=== PATIENT | female | born 1985 | race Caucasian/White ===

== ENCOUNTER 2017-06-05 18:26 | Emergency (ER) | payer OTHER ==
[~2017-06-05] VITALS: Ht 162.6 cm; Wt 71.7 kg
[2017-06-05 18:47] VITALS: BP 117/72
[2017-06-05] MEDS ORDERED: NACL 0.9% 1,000 ML IV ONE (20:50)
[2017-06-05] MEDS ORDERED: diphenhydrAMINE 50 MG/ML VIAL IVP ONE (20:50)
[2017-06-05] MEDS ORDERED: METOCLOPRAMIDE 10 MG/2 ML INJ VIAL IVP ONE (20:50)
[2017-06-05] MEDS ORDERED: KETOROLAC 30 MG/ML VIAL IVP ONE (21:35)
[2017-06-05 22:16] VITALS: BP 118/74
== END 2017-06-05 22:16 | disposition home or self-care (01) ==
LOC: MED 18:26
DX: R51 Headache (principal); H53.8 Other visual disturbances; R11.2 Nausea with vomiting, unspecified
CPT/HCPCS: 70450; 81002; 81025; 96361; 96374; 96375; 99284; J1200; J1885; J2765; J7030

== ENCOUNTER 2020-05-14 23:14 | Emergency (ER) | payer OTHER ==
[~2020-05-14] VITALS: Ht 165.1 cm; Wt 73.5 kg
[2020-05-14 23:23] VITALS: BP 121/76
--- NOTE | 2020-05-14 23:31 | NUR ---
ambulated to bed 06 with steady gait
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
--- NOTE | 2020-05-14 23:40 | NUR ---
DR. MENESES AT BEDSIDE FOR MEDICAL EVALUATION.
[2020-05-14] MEDS ORDERED: ONDANSETRON 4 MG TAB ONE (23:42)
[2020-05-14] MEDS ORDERED: ONDANSETRON 4 MG ODT PO ONE (23:45)
--- NOTE | 2020-05-15 00:09 | NUR ---
US AT BEDSIDE .
--- NOTE | 2020-05-15 00:32 | NUR ---
PT RESTING IN BED , LOCKED AND IN LOWEST POSITION, HOB ELEVATED, SIDE RAIL X2 FOR PT SAFETY. PT STATES SHE NO LONGER HAS NAUSEA AT THIS TIME .
--- NOTE | 2020-05-15 01:29 | NUR ---
pt ambulated to restroom w/ steady gait.
--- NOTE | 2020-05-15 02:14 | NUR ---
DR. MENESES AT BEDSIDE FOR RE-EVALUATION
[2020-05-15 02:17] VITALS: BP 126/79
== END 2020-05-15 02:17 | disposition home or self-care (01) ==
LOC: MED 23:14
DX: O46.8X1 Other antepartum hemorrhage, first trimester (principal); O26.891 Other specified pregnancy related conditions, first trimester; R10.30 Lower abdominal pain, unspecified
CPT/HCPCS: 76801; 81002; 81025; 99284; Q0092; Q0162